=== PATIENT | male | born 1980 | race Caucasian/White ===

== ENCOUNTER 2017-02-22 13:10 | Emergency (ER) | payer SELFPAY ==
[~2017-02-22] VITALS: Ht 170.2 cm; Wt 159.1 kg
[~2017-02-22 13:10] MED LIST: AMBIEN 10MG10 MG PO; AMBIEN 5MG TABLE5 MG PO; ASPIRIN 81M81 MG/TA2 PO; ATIVAN 0.50.5 MG/TAB PO; BETAPACE 120MG120 MG PO; CEPHALEXIN500 M1 PO; COREG 25MG25 MG/TAB PO; DIFLUCAN200 MG PO; FLONASE NASAL S16 GM NS; FOLIC ACID 11 MG/TA1 PO; LASIX 40MG TABL40 MG PO; MIDRIN CAPSULE1 CAP PO; MUCINEX1200 MG PO; MULTAQ400 MG PO; NO HOME MEDICATIONS; NORCO 325 MG-51 TAB PO; NYSTATIN POWDER30 GM TOP; NYSTATIN1 POW; OMNICEF 300MG300 MG PO; OXAYDO7.5 MG PO; OXYCODONE; OXYCODONE10 MG PO; PEPCID 20MG TAB20 MG; PEPCID 20MG TAB20 MG PO; PERCOCET 325 MG1 TA2 PO; PHENERGAN25 MG RC; PRADAXA 150MG150 MG PO; PRILOSEC 20MG20 MG PO; QUESTRAN LITE 41 PKT PO; TIAZAC120 MG PO; TOPROL XL 50MG50 MG PO; TYLENOL EXTRA500 M1 PO; ULTRAM 50MG TAB50 MG PO; VITAMIN B1 87 M1 TAB PO; VITAMIN B121000 MCG PO; ZESTRIL 10MG10 MG PO
[2017-02-22 13:13] VITALS: TEMP 98
[2017-02-22 14:34] LABS: BASO # 0.1 (0.0-0.2); BASO % 0.6 % (0.0-2.0); GRAN # 6.4 (1.4-6.5); GRAN % 75.9 % (42.2-75.2); HEMATOCRIT 41.1 % (42.0-52.0); HEMOGLOBIN 13.9 g/dl (13.5-18.0); LYMPH # 1.4 (1.2-3.4); MEAN CELL VOLUME 80 fl (80.0-100.0); MEAN CORPUSCULAR HEMOGLOBIN 27 pg (27.0-31.0); MEAN CORPUSCULAR HGB CONC 34 g/dl (33.0-37.0); MEAN PLATELET VOLUME 10.2 fl (7.4-10.4); MONO # 0.6 (0.1-0.6); MONO % 7.3 % (1.7-9.3); PLATELET COUNT 431 K/mm3 (130-400); RED BLOOD COUNT 5.11 M/mm3 (4.20-5.60); REDCELL DISTRIBUTION WIDTH-CV 15.1 % (11.5-14.5); WHITE BLOOD COUNT 8.5 K/mm3 (4.8-10.8)
[2017-02-22 14:37] LABS: ADJUSTED CALCIUM 8.3 mg/dL (8.4-10.2); ALANINE AMINOTRANSFERASE 70 U/L (21-72); ALBUMIN 4.7 gm/dL (3.5-5.0); ALKALINE PHOSPHATASE 79 U/L (50-136); ANION GAP 23 mmol/L (7-16); BILIRUBIN,TOTAL 1.2 mg/dL (0.0-1.0); BLOOD UREA NITROGEN 8 mg/dL (9-20); CALCIUM 8.9 mg/dL (8.4-10.2); CARBON DIOXIDE 18 mmol/L (22-30); CREATININE, serum 0.64 mg/dL (0.66-1.25); GLUCOSE 80 mg/dL (74-106); POTASSIUM 4.1 mmol/L (3.4-5.0); SODIUM 131 mmol/L (137-145); TOTAL PROTEIN 8.1 gm/dL (6.4-8.2)
[2017-02-22 14:39] LABS: CHLORIDE 89 mmol/L (98-107)
[2017-02-22 14:50] LABS: TROPONIN-I < 0.012 ng/mL (0.000-0.034)
[2017-02-22 15:08] LABS: THYROID STIMULATING HORMONE 0.634 uIU/mL (0.465-4.680)
[2017-02-22 18:02] VITALS: BP 112/74; PULSE 90
== END 2017-02-22 18:05 | disposition home or self-care (01) ==
LOC: COL.ER 13:10
PROVIDERS: Nurse Practitioner
DX: R07.9 Chest pain, unspecified (principal); Z98.84 Bariatric surgery status
CPT/HCPCS: J1885; J2270; J7030; Q9967

== ENCOUNTER 2020-09-15 08:00 | Outpatient (RCR) | payer SELFPAY | END 2020-10-06 | disposition home or self-care (01) | LOC: WSPT | DX: M76.31 Iliotibial band syndrome, right leg (principal) ==

== ENCOUNTER 2023-10-14 10:38 | Emergency (ER) | payer SELFPAY ==
[~2023-10-14] VITALS: Ht 170.2 cm; Wt 193.2 kg
[~2023-10-14 10:38] MED LIST changes: +ADVIL200 MG PO; +ALA-CORT1% TP; +BIPAP; +DESENEX TP; +DESYREL 50MG50 MG PO; +PERCOCET 325 MG1 TAB PO; +TYLENOL 325MG325 MG PO
[2023-10-14 10:39] VITALS: TEMP 97.7
[2023-10-14 14:33] LABS: BASO # 0.1 K/mm3 (0.0-0.2); BASO % 0.4 % (0.0-2.0); EOS # 0.5 K/mm3 (0.0-0.7); GRAN # 8.5 K/mm3 (1.4-6.5); HEMOGLOBIN 11.3 g/dl (13.5-18.0); LYMPH # 0.7 K/mm3 (1.2-3.4); LYMPH % 5.9 % (20.0-51.0); MEAN CELL VOLUME 93 fl (80.0-100.0); MEAN CORPUSCULAR HEMOGLOBIN 29 pg (27-31); MEAN CORPUSCULAR HGB CONC 31 g/dl (33.0-37.0); MEAN PLATELET VOLUME 9.4 fl (7.4-10.4); MONO # 1.4 K/mm3 (0.1-0.6); MONO % 12.6 % (1.7-9.3); PLATELET COUNT 295 K/mm3 (130-400); RED BLOOD COUNT 3.97 M/mm3 (4.20-5.60); REDCELL DISTRIBUTION WIDTH-CV 14.6 % (11.5-14.5)
[2023-10-14 14:39] LABS: ALBUMIN 2.6 gm/dL (3.5-5.0); BILIRUBIN,TOTAL 0.4 mg/dL (0.2-1.2); CALCIUM 9.4 mg/dL (8.4-10.2); CREATININE, serum 0.6 mg/dL (0.72-1.25); POTASSIUM 4.5 mmol/L (3.5-4.5); TOTAL PROTEIN 7.7 gm/dL (6.2-8.1)
[2023-10-14 14:51] LABS: HEMATOCRIT 36.8 % (42.0-52.0)
[2023-10-14] MEDS ORDERED: XARELTO STARTER20 MG PO (15:15)
[2023-10-14] MEDS ORDERED: CEPHALEXIN500 M1 PO (15:30)
[2023-10-14 15:37] VITALS: BP 147/87; PULSE 94
== END 2023-10-14 15:37 | disposition home or self-care (01) ==
LOC: COL.ER 10:38
PROVIDERS: Physician Assistant
DX: U07.1 COVID-19 (principal); M79.89 Other specified soft tissue disorders; L53.9 Erythematous condition, unspecified; R79.89 Other specified abnormal findings of blood chemistry; R23.8 Other skin changes; R06.02 Shortness of breath; R53.1 Weakness; R53.83 Other fatigue; R61 Generalized hyperhidrosis; E66.01 Morbid (severe) obesity due to excess calories; Z68.44 Body mass index [BMI] 60.0-69.9, adult; Z87.891 Personal history of nicotine dependence

== ENCOUNTER → 2023-10-17 | Outpatient (CLI) | payer SELFPAY ==
[~2023-10-17] MED LIST changes: +XARELTO STARTER20 MG PO
== END ==
LOC: COL.RAD 07:50
DX: M79.89 Other specified soft tissue disorders (principal)